=== PATIENT | male | born 1950 | race Caucasian/White ===

== ENCOUNTER 2016-09-11 08:56 | Day surgery (SDC) | payer OTHER ==
[~2016-09-11] VITALS: Ht 188 cm; Wt 104.3 kg
[~2016-09-11 08:56] MED LIST: 0.9% Sodium Chloride 1,000 ML IV SCH; ALBU8.5H2 INHALATION; AMLO-39 PO; ATOR20TA PO; BECL8.7A6 INHALATION; HYDR12.5 PO; LISI40TA PO; LOP100 PO; METO50TA3 PO; Sodium Chloride LOK Flush 10 mL Syringe IV PRN; TEST200V20 IM; fentaNYL-PF 50 mCg/mL 2 mL Inj IVPUSH PRN
[2016-09-11 09:12] VITALS: BP 135/78; PULSE 76; RESP 14; O2SAT 96
[2016-09-11 10:04] VITALS: BP 99/68; PULSE 71; RESP 14; O2SAT 94
[2016-09-11 10:14] VITALS: BP 88/58; PULSE 72; RESP 14
[2016-09-11 10:23] VITALS: BP 109/69; PULSE 68; RESP 14; O2SAT 96
--- NOTE | 2016-09-11 12:32 | ENDO ---
[address] [address] ENDOSCOPY PROCEDURE PATIENT: ANAI MARCOS : 1950 MR#: [id number] ADMIT: 09/11/2016 JOB ID: [id number] DATE OF SERVICE: 09/11/2016 PROCEDURE PERFORMED: Colonoscopy. INDICATIONS: Screening. A patient with a personal history of colon polyps. ASA CLASSIFICATION: The patient's ASA classification is II. MALLAMPATI SCORE: Mallampati score was 2. MEDICATIONS: 1. Versed 6 mg. 2. Fentanyl 125 mcg. INSTRUMENT USED: PCF-H180AL. PREPARATION QUALITY: Fair. PROCEDURE DETAILS: After informed consent was obtained, the patient was brought into the GI suite, where he was placed on oxygen via nasal cannula and monitored with continuous pulse oximeter, telemetry, and blood pressure monitoring. A time-out was performed. Then, he was placed in the left lateral decubitus position and medications were administered for sedation. Digital rectal exam with palpation of the prostate was performed which was unremarkable. The colonoscope was then inserted into the rectum and advanced under direct visualization to the cecum, which was identified by the presence of the ileocecal valve and appendiceal orifice. Once the cecum was reached, the colonoscope was withdrawn back into the rectum, as the mucosa and lumen were examined. In the rectum, retroflexion was performed. Following retroflexion, remaining air in the rectum was suctioned, and procedure was completed. FINDINGS: 1. In the proximal transverse colon there was an approximately 6 mm sessile polyp that was removed with a hot snare. 2. Otherwise normal exam from rectum to cecum. IMPRESSION: Transverse colon polyp. RECOMMENDATIONS: 1. Avoid NSAIDs and anticoagulants for 72 hours. 2. Repeat colonoscopy in five years. COMPLICATIONS: None. ESTIMATED BLOOD LOSS: Zero.
--- NOTE | 2016-09-12 10:59 | PATH ---
SURGICAL PATHOLOGY Attending Physician:Reina Avila CASE STATUS: Signed Out PATIENT NAME: ANAI MARCOS PID: [id number] : 1950 DATE COLLECTED:09/11/2016 20:12 SPECIMEN: Colon, Biopsy CLINICAL HISTORY: TRANSVERSE POLYP X1 FINAL DIAGNOSIS: Transverse Colon Polyp: Tubular adenoma involving single biopsy fragment. ICD10 D12.3 GROSS DESCRIPTION: The specimen is received in one formalin filled container labeled with the patient's name, sublabeled "transverse polyp" and consists of 2 portions of tissue which aggregate to 0.5 x 0.5 x 0.4 CM. The specimen is entirely submitted in one cassette. 09/11/2016 [facility] ICD-9 CODES: CPT CODES: 1: 64031 Electronically Signed Out Adriel Reinoso MD [facility] Pathology [facility] [address] [facility], [place] [address] Technical component performed at [facility], [address] [place] [address] [address], [place], [address]
== END 2016-09-11 23:59 | disposition home or self-care (01) ==
LOC: END 08:56
PROVIDERS: ATTEND Internal Medicine Gastroenterology
DX: Z12.11 Encounter for screening for malignant neoplasm of colon (principal); Z86.010 Personal history of colon polyps; D12.3 Benign neoplasm of transverse colon; I10 Essential (primary) hypertension; E78.00 Pure hypercholesterolemia, unspecified; E83.52 Hypercalcemia
CPT/HCPCS: 45380; 88305; 99153; G0500; J2250; J3010; J7030